=== PATIENT | male | born 1995 | race Caucasian/White ===

== ENCOUNTER 2025-05-13 03:51 | Emergency (ER) | payer OTHER, SELFPAY ==
[2025-05-13 03:55] VITALS: BP 121/93
[2025-05-13 04:43] VITALS: BP 118/86
[2025-05-13 05:03] LABS: Hematocrit 41.2 % (39.0-52.0); Hemoglobin 14.4 g/dL (13.0-18.0); Mean Corp Hgb Conc. 35.0 g/dL (33.0-37.0); Mean Corpuscular Volume 84.3 fL (80.0-94.0); Nucleated Red Blood Cells % 0 % (-); Platelet Count 188 10^3/uL (130-400); Red Cell Dist. Width 11.5 % (11.5-14.5)
--- NOTE | 2025-05-13 05:33 | ED.GENMED ---
History of Present Illness
General
Chief Complaint: Abdominal Symptoms
Source: patient
Exam Limitations: none
Nursing documentation reviewed up to this point in time: agreed with
History of Present Illness
History of Present Illness:
Note:
CHIEF COMPLAINT(S)
Pain in the hand.
HISTORY OF PRESENT ILLNESS
The patient is a 29-year-old male who reports experiencing pain in his hand since Friday. The patient mentioned cleaning up glass, which suggests a potential mechanism of injury. He noted that over the following days, through to Friday, the pain
persisted. The patient expressed concern about the possibility of cellulitis, though he did not observe classic signs of infection such as redness or swelling. The pain was described as intermittent.
PAST MEDICAL AND SURGICAL HISTORY
The patient did not report any significant past medical or surgical history.
PLAN
1. A hand X-ray will be conducted to evaluate for any retained foreign body such as glass and assess any potential structural damage.
2. Blood tests will be performed to rule out infection.
3. Observation and monitoring for signs of cellulitis or other skin infections.
DIFFERENTIAL DIAGNOSIS
The Differential Diagnosis includes, in no particular order and is not limited to:
1. Retained foreign body (glass)
2. Sprain or soft tissue injury
3. Contusion
4. Infection (cellulitis)
5. Tendonitis
6. Fracture
7. Nerve entrapment
8. Osteomyelitis
9. Ganglion cyst
10. Hematoma
Disposition:
SUMMARY OF ENCOUNTER
The patient, a 29-year-old male, presented with an injury to his finger that occurred several days ago. He has experienced no fever or chills associated with the injury, but reports having diarrhea, which is believed to be unrelated to the hand
injury. There are no signs of infection, abscess, or cellulitis on examination.
DISPOSITION
The patient will be discharged home.
PLAN
The patient will be discharged since theres no need for antibiotics at this time due to lack of infection. He received an updated tetanus shot.
INDEPENDENT REVIEW OF LABS AND INTERPRETATION OF TESTS
My independent review of labs is that no significant abnormalities were observed, and there are no signs of infection.
PATIENT EDUCATION AND COUNSELING
The patient was informed about the findings of the examination and the decision against prescribing antibiotics. He was instructed on signs of infection to watch for, such as increased redness, swelling, or fever, which would warrant an immediate
follow-up.
FOLLOW-UP INSTRUCTIONS
The patient was advised to return if he develops signs of infection or if symptoms worsen.
MEDICATION RECONCILIATION
The tetanus shot was administered during the visit.
MEDICAL DECISION MAKING
- Number and Complexity of Problems Addressed:
The differential diagnosis includes retained foreign body, sprain or soft tissue injury, contusion, infection (cellulitis), tendonitis, fracture, nerve entrapment, osteomyelitis, ganglion cyst, hematoma.
- Risk:
Consideration of Admission/Observation: Escalation of care including admission/observation was considered given the complexity and risk of the patients presenting complaint, exam findings, and/or their underlying comorbidities. However, ultimately I
feel the patient is safe for outpatient management with close follow up. Reasoning: Work-up reassuring, does not reveal any acute life/organ threatening processes, patients symptoms well controlled upon reevaluation, reexamination is reassuring,
vitals are stable, patient agreeable with discharge, reliable for follow-up.
DIAGNOSIS
1. Finger injury, unspecified (ICD-10: S60.929A)
2. Non-bloody diarrhea (ICD-10: R19.7)
Phy Exam
Physical Exam
Physical Exam:
.
Course
Orders/Labs/Results
Orders:
Orders
05/13/25 04:12
Hand, Left 3 View [CR Hand - Left Min 3 Views] Urgent
Comment:
Reason For Exam: pain
05/13/25 04:43
Complete Blood Count/With Diff Urgent
Comprehensive Metabolic Panel Urgent
05/13/25 05:22
Tetanus/Diphth/Acelpertussis [Adacel] 0.5 ml IM .ONCE ONE
Abnormal Lab Results
05/13/25
04:43
MPV 11.3 H fL
(7.4-10.4)
Absolute Lymphs (auto) 1.0 L 10^3/uL
(1.2-3.4)
Monocytes % 10.9 H %
(1.7-9.3)
05/13/25 04:43
Vital Signs
Initial and Last Documented VS:
Initial Vital Signs
Temp Pulse Resp BP Pulse Ox
98.2 F 92 14 121/93 100
05/13/25 03:55 05/13/25 03:55 05/13/25 03:55 05/13/25 03:55 05/13/25 03:55
Last Documented Vital Signs
Temp Pulse Resp BP Pulse Ox
98.5 F 84 16 118/86 100
05/13/25 04:43 05/13/25 04:43 05/13/25 04:43 05/13/25 04:43 05/13/25 04:43
*Radiology
Radiology exam reviewed: all reviewed NAD by ED Provider
*Pulse Oximetry
SaO2: 100
Oxygen Mode of Delivery: Room air
Patient hypoxic: no
*Critical Care Note
Total Time (30-74mins, 75-104mins- exclusive of procedures): Not Applicable
ED Attending Note
-
Portions of this chart may have been created with voice recognition software.� Occasional wrong word or��sound alike� substitutions may have occurred due to the inherent limitations of voice recognition software.
Discharge Plan
Departure
Patient Disposition: Home (Routine Discharge)
Date of Disposition: 05/13/25
Time of Disposition: 05:35
Patient with high blood pressure during this ER visit?: No
Condition: Good
Discharge Problem:
Puncture wound of hand, Diarrhea
Instructions: Acute Diarrhea, Puncture Wound
Prescriptions:
No Action
No Current Medications
0
Referrals:
NONE,* [Family Provider, Internal Medicine]
Johnny Daniel MD [Active, Orthopedics] - As needed
Activity Restrictions/Additional Instructions:
Thank You for choosing [facility].
It was a pleasure meeting you and taking part in your care. We hope for your continued healing and wellness.
Please read discharge instructions in their entirety. However, they are for general education and may not describe your exact diagnosis at discharge. Information on your ER visit and medical conditions were discussed with you along with appropriate
follow up information...
If indicated, please take your medications as instructed and indicated on discharge paperwork.
Please schedule a follow up appointment as directed. Call to schedule an appointment
Please return to the emergency department with ANY change in, persisting, or worsening of symptoms. If any of your symptoms do not improve, or persist, or become more severe within 6-12 hours, please return to the emergency department for further
care.
Please return to the emergency department if you develop a headache, neck pain/stiffness, fever greater than 100.4F, chest pain, shortness of breath, persistent nausea, vomiting, slurred speech, difficulty walking, numbness/tingling, weakness, signs
of infection or any other symptoms that are worrisome to you.
If you have any questions or concerns please do not hesitate to call the Hospital at .
Interventions
Interventions:
*Risk Screen - Suicide Last Done: 05/13/25 03:55
*General Assessment Last Done: 05/13/25 04:41
*Neglect/Abuse Screening Last Done: 05/13/25 04:41
*ED- Fall Risk Assessment Last Done: 05/13/25 04:41
*ED COVID-19 Vaccine History Last Done: 05/13/25 04:41
*ED Influenza Vaccine History Last Done: 05/13/25 04:41
VP-Jccgat-Hzylhwbvto Assessment Last Done: 05/13/25 04:41
Discharge Date and Time
Print Language: [id number]
[2025-05-13 05:40] LABS: ALT (SGPT) 31 U/L (0-50); AST (SGOT) 29 U/L (17-59); Albumin 4.9 g/dl (3.5-5.0); Alkaline Phosphatase 59 U/L (38-126); Blood Urea Nitrogen 18 mg/dl (9-20); Calcium 9.4 mg/dl (8.4-10.2); Carbon Dioxide 27 mmol/L (22-30); Chloride 103 mmol/L (98-107); Glucose 96 mg/dl (70-99); Potassium 3.7 mmol/L (3.5-5.1); Sodium 137 mmol/L (135-145); Total Protein 7.8 g/dl (6.3-8.2); eGFR > 60.00
[2025-05-13] MEDS: ADACEL 0.5 ML IM (05:43)
== END 2025-05-13 05:55 | disposition home or self-care (01) ==
LOC: EMR 03:51
PROVIDERS: EMERGENCY PHYSICIAN Student in an Organized Health Care Education/Training Program
DX: S61.432A Puncture wound without foreign body of left hand, initial encounter (principal); W29.8XXA Contact with other powered hand tools and household machinery, initial encounter; R19.7 Diarrhea, unspecified; Z23 Encounter for immunization
CPT/HCPCS: 99283; 90471; 73130; 80053; 85025; 90715